=== PATIENT | male | born 1940 | race Caucasian/White ===

== ENCOUNTER 2023-09-17 09:25 | Emergency (ER) | payer MEDICARE, BC ==
[~2023-09-17] VITALS: Ht 175.3 cm; Wt 91.0 kg
[2023-09-17 10:44] VITALS: BP 152/93
[2023-09-17] MEDS ORDERED: FINASTERIDE5 MG PO (10:53)
[2023-09-17] MEDS ORDERED: AMLODIPINE BESYL5 MG PO (10:53)
[2023-09-17] MEDS ORDERED: PRAVASTATIN SOD10 MG PO (10:53)
[2023-09-17] MEDS ORDERED: XARELTO20 MG PO (10:54)
[2023-09-17] MEDS ORDERED: CORDARONE/200 MG/TAB PO (10:54)
[2023-09-17] MEDS ORDERED: HYDROCHLOROT25 MG PO (10:54)
[2023-09-17] MEDS ORDERED: COZAAR50 MG PO (10:55)
[2023-09-17] MEDS ORDERED: TAMSULOSIN0.4 MG PO (10:55)
[2023-09-17 11:01] VITALS: BP 134/81
[2023-09-17 11:31] VITALS: BP 149/86
[2023-09-17 11:45] VITALS: BP 149/87
[2023-09-17 12:16] VITALS: BP 138/75
[2023-09-17 13:20] VITALS: BP 138/75
== END 2023-09-17 13:20 | disposition home or self-care (01) ==
LOC: ED 09:25
DX: M25.552 Pain in left hip (principal); I10 Essential (primary) hypertension; E11.9 Type 2 diabetes mellitus without complications; I48.91 Unspecified atrial fibrillation; Z95.0 Presence of cardiac pacemaker; Z96.642 Presence of left artificial hip joint; Z79.01 Long term (current) use of anticoagulants